=== PATIENT | male | born 1980 | race Caucasian/White ===

== ENCOUNTER 2024-06-10 07:36 | Emergency (ER) | payer MEDICAID ==
[~2024-06-10] VITALS: Ht 152.4 cm; Wt 64.1 kg
[2024-06-10 07:39] VITALS: BP 130/90; PULSE 102; RESP 16; TEMP 98.6; O2SAT 99
[2024-06-10] MEDS ORDERED: AMOX875T2 PO (08:35)
== END 2024-06-10 09:04 | disposition home or self-care (01) ==
LOC: ER 07:36
DX: H66.91 Otitis media, unspecified, right ear (principal); J06.9 Acute upper respiratory infection, unspecified
CPT/HCPCS: 99283